=== PATIENT | female | born 1945 | race Caucasian/White ===

== ENCOUNTER 2020-11-22 14:03 | Outpatient (CLI) | payer MEDICARE, OTHER, SELFPAY ==
--- NOTE | 2020-11-22 14:43 | XR_ITS ---
WS: [id number] SCREENING DEXA SCAN Desti CLINICAL INFORMATION: POST MENOPAUSAL COMPARISON: FINDINGS: The L1-L4 bone mineral density measures 1.449 g/cm2. This corresponds to a T score score of 2.2 and Z score of 4.2. Left femoral neck bone mineral density measures 1.100 g/cm2. This corresponds to a T score of 0.7 and Z score of 2.7. Right femoral neck bone mineral density measures 1.084 g/cm2. This corresponds to a T score 0.6of and Z score of 2.5. Mean femoral neck bone mineral density measures 1.092 g/cm2. This corresponds to a T score of 0.7 and Z score of 2.6. XR/XR DEXA axial skeleton* [id number] IMPRESSION: Normal bone mineralization. Patient's FRAX calculated 10 year probability for major osteoporotic fracture i s 13.1 % and osteoporotic hip fracture is 1.5%.
== END 2020-11-22 14:04 | disposition home or self-care (01) ==
PROVIDERS: PCP Family Medicine; Visit Provider Family Medicine
DX: Z78.0 Asymptomatic menopausal state (principal)
CPT/HCPCS: 77080

== ENCOUNTER 2021-01-08 11:53 | Emergency (ER) | payer MEDICARE, OTHER, SELFPAY ==
[2021-01-08 12:03] VITALS: BP 172/82; PULSE 85; RESP 18; TEMP 36; O2SAT 99
[2021-01-08 13:33] VITALS: BP 171/60; PULSE 79; O2SAT 100
--- NOTE | 2021-01-08 13:49 | ED_ITS ---
HPI - General Adult General: Chief complaint: General Medical Stated complaint: pain all over due to fall earlier in week Time Seen by Provider: 01/08/21 13:23 History of Present Illness: HPI narrative: Patient here because of pain in her back that is been present for many years. Patient has no medicine take for discomfort Tylenol does seem to help. Patient has a history of frequent falls daughter says that nothing specific here recently patient complained more about sinus problems would like to have some for her sinuses. Daughter says it seems to help her more anything. MD complaint: Sinus pain Onset (ago): week(s) Location: face and back Severity: mild Associated symptoms: Deny chest pain, dyspnea, headache(s), nausea, rash or vomiting Review of Systems Narrative: Patient has a history of frequent falls but is able to ambulate getting up out of a chair and has no specific complaints concerning her pain in her back. Const: Denies: fever(s), chills or body aches Eyes: Denies: change in vision or blurry vision ENMT: Reports: other (Frontal sinus pain); Denies: throat pain or nasal congestion Card: Denies: chest pain or dyspnea on exertion Resp: Denies: dyspnea, productive cough or non-productive cough GI: Denies: abdominal pain, nausea or vomiting Musc: Reports: back pain (Chronic); Denies: extremity pain Skin/Breast: Denies: rash Neuro: Denies: headache(s) Psych: Denies: anxiety or depression Job/Lymph: Denies: easy bruising PFSH ED PFSH: Medical History Atrial fibrillation Chronic fatigue Hypertension Pacemaker Parkinson disease Parkinson disease Syncope Family History Other Stroke Social History Smoking and tobacco status: former smoker Alcohol intake: never Physical Exam Const: COMMON NORMALS: no acute distress, average body habitus and patient oriented x3 HENMT: COMMON NORMALS: normocephalic HEAD & SCALP: normal to inspection and normocephalic FACE & SINUS: sinus tenderness frontal Eye: COMMON NORMALS: conjunctivae normal GENERAL EYE: appearance normal, both eyes and all related structures CONJUNCTIVA: Yes conjunctivae normal Neck/C-Spine: COMMON NORMALS: no JVD Chest: COMMONS NORMALS: normal inspection of the chest Resp: COMMON NORMALS: normal respiratory effort and clear to auscultation bilaterally AUSCULTATION: clear to auscultation bilaterally Cardio: COMMON NORMALS: no JVD, regular rate and regular rhythm RATE: regular rate RHYTHM: regular rhythm GI: COMMON NORMALS: Normal to inspection, nondistended, normoactive bowel sounds present : COMMON NORMALS: Yes no CVA tenderness BLADDER/KIDNEY EXAM: Yes no CVA tenderness Back/Pelvis: COMMON NORMALS: no CVA tenderness, thoracic and lumbar spine normal to inspection and no thoracic nor lumbar tenderness THORACIC SPINE/UPPER BACK: Yes normal to inspection Extremity: COMMON NORMALS: normal to inspection and full ROM Neuro: COMMON NORMALS: patient oriented x3 Course Vital Signs: Vital signs: Vital Signs Temperature 96.8 F L 01/08/21 12:03 Pulse Rate 79 01/08/21 13:33 Respiratory Rate 18 01/08/21 12:03 Blood Pressure 171/60 01/08/21 13:33 Pulse Oximetry 100 01/08/21 13:33 MDM - General Adult MDM Narrative: Medical decision making narrative: Daughter states that patient has no specific problems going on just when get seen today when able to get into Dr. Lanier yesterday. Has history of chronic low back pain and that has not changed. Patient does complain about sinus tenderness and daughter says that pretrip antibiotics usually gets patient over the hump and she feels much better when she has that patient denies any other problems daughter denies any other concerns. Discharge Plan Discharge Patient Disposition: Home Clinical Impression: Frontal sinus pain Chronic back pain Qualifiers: Back pain location: low back pain Back pain laterality: unspecified Sciatica presence: without sciatica Qualified Code(s): M54.5 - Low back pain Condition: Stable Prescriptions: New cephalexin 500 mg capsule 500 mg PO Q8H 7 Days Qty: 21 RF: 0 Celebrex 100 mg capsule 100 mg PO BID Qty: 20 RF: 0 No Action Nourianz 20 mg tablet 20 mg PO DAILY RF: 0 carbidopa-levodopa [Sinemet] 25-250 mg tablet 1 tab PO QID RF: 0 loratadine 10 mg tablet 10 mg PO DAILY RF: 0 aspirin [Adult Low Dose Aspirin] 81 mg tablet,delayed release (DR/EC) 81 mg PO DAILY 30 Days Qty: 30 RF: 5 metoprolol succinate 25 mg tablet extended release 24 hr See Rx Instructions .ROUTE .COMPLEX Qty: 90 RF: 3 Discharge Orders: Discharge ED (Routine); Ordered 01/08/21 Ordered By: Eleuterio Billingsley Referrals: Lionel Lanier MD [Primary Care Provider] - Discharge Diet: Usual diet Discharge Activity: Resume usual activity Patient Instructions: Sinusitis (ED), Fall Prevention (ED) Activity Restrictions/Additional Instructions: Follow-up with medical provider as directed. Take medications as prescribed. Return to the ER or your medical provider if condition worsens. Please read and understand discharge instructions. If any questions ask please. Coding Level of Care Code ED Formal Wear Rental Clerk for Valerie Fwd Exam Comprehensive
== END 2021-01-08 13:39 | disposition home or self-care (01) ==
PROVIDERS: Emergency Provider Nurse Practitioner Family; PCP Family Medicine
DX: G89.29 Other chronic pain (principal); M54.5 Low back pain; R51.9 Headache, unspecified; Z79.82 Long term (current) use of aspirin; I48.91 Unspecified atrial fibrillation; I10 Essential (primary) hypertension; Z95.0 Presence of cardiac pacemaker; G20 Parkinson's disease; Z87.891 Personal history of nicotine dependence
CPT/HCPCS: 99281

== ENCOUNTER 2021-01-12 05:55 | Outpatient (CLI) | payer MEDICARE, OTHER, SELFPAY ==
--- NOTE | 2021-01-12 08:03 | PC.NURSE ---
consent signed prior to start of infusion. Vitals: HR-66, O2-99, BP-150/66, RR-14
--- NOTE | 2021-01-12 08:35 | PC.NURSE ---
Rounded on patient. Patient resting in bed no distress noted. VS- 67 HR, 98% RA, 148/71, 13 RR.
--- NOTE | 2021-01-12 08:43 | PC.NURSE ---
Infusion complete at this time. Patient reports that she is still feeling good. VS- 64 HR, 98%, 148/71, 15 RR.
--- NOTE | 2021-01-12 09:29 | ED_ITS ---
HPI - COVID History of Present Illness: HPI Narrative: The patient as an outpatient here only for a Bham and other antiviral dual infusion. She became symptomatic approximately 5 to 7 days ago and tested positive for Covid. She had an outpatient Bham infusion ordered however it is no longer given as a single agent but with the other agent. Pharmacy was consulted and they ordered the dual agent antiviral therapy. She is satting 100% on room air. Stable to get this infusion and discharge MD complaint: known COVID positive Prior covid testing: yes, results known COVID 19 common symptoms: positive dyspnea, fatigue and body aches; negative headache(s), throat pain, nasal congestion or diarrhea COVID 19 other sytmptoms: negative chest pain, requiring oxygen, requiring more oxygen, respiratory distress or confusion Onset (ago): day(s) (5) Severity: moderate COVID Results: No Data to Display Review of Systems General: Reports: 10 or more systems reviewed and unremarkable except in HPI and below Const: Reports: body aches and fatigue Eyes: Denies: change in vision, blurry vision or eye redness ENMT: Denies: throat pain, swelling of lips/tongue, ear or mastoid pain or nasal congestion Card: Denies: chest pain Resp: Reports: dyspnea GI: Denies: abdominal pain, diarrhea or GI cramping : Denies: flank pain, difficulty voiding, urinary frequency or urinary urgency Musc: Denies: neck pain, back pain, extremity pain, joint pain, joint redness, limited range of motion or muscle weakness Skin/Breast: Denies: rash, pruritus, erythema, skin pain or skin tenderness Neuro: Denies: headache(s), numbness in extremities, weakness in extremities, sensory changes, difficulty walking, dizziness, confusion or Slurred speech present Psych: Denies: anxiety or depression Endo: Denies: polyuria All/Imm: Denies: urticaria, throat swelling or tongue swelling PFSH ED PFSH: Medical History Atrial fibrillation Chronic fatigue Hypertension Pacemaker Parkinson disease Parkinson disease Syncope Family History Other Stroke Social History Smoking and tobacco status: former smoker Alcohol intake: never Physical Exam Const: COMMON NORMALS: no acute distress, average body habitus, patient oriented x3, no limitations, healthy appearing, alert and well nourished GENERAL APPEARANCE: cooperative, comfortable, well kempt and well developed ORIENTATION/CONSCIOUSNESS: Yes awake, Yes oriented to person, Yes oriented to place and Yes oriented to time HENMT: COMMON NORMALS: normocephalic, external ears normal and Normal external nose present HEAD & SCALP: normal to inspection and normocephalic NOSE: Normal external nose present EXTERNAL EAR: Yes external ears normal MOUTH: Normal oral and palatal mucosa present THROAT: posterior oropharynx normal Eye: COMMON NORMALS: Equal, round and reactive pupils present and EOMs intact bilaterally GENERAL EYE: appearance normal, both eyes and all related structures PUPIL: Yes Equal, round and reactive pupils present Neck/C-Spine: COMMON NORMALS: full ROM, no lymphadenopathy, no meningeal signs and no JVD GENERAL: Yes normal visual inspection Lymph: LYMPHATIC: no lymphadenopathy noted Chest: COMMONS NORMALS: normal inspection of the chest and normal palpation of entire chest wall Resp: COMMON NORMALS: normal respiratory effort, No retractions, No use of accessory muscles, clear to auscultation bilaterally and percussion normal EFFORT & INSPECTION: Yes able to speak in complete sentences AUSCULTATION: clear to auscultation bilaterally PERCUSSION: percussion normal Cardio: COMMON NORMALS: no JVD, regular rate, regular rhythm, S1 normal heart sound present, S2 normal heart sound present and Peripheral pulses 2+ throughout RATE: regular rate RHYTHM: regular rhythm HEART SOUNDS: S1 normal heart sound present and S2 normal heart sound present PERIPHERAL PULSES: Peripheral pulses 2+ throughout GI: COMMON NORMALS: Normal to inspection, nondistended, normoactive bowel sounds present, Soft to palpation, non-tender and no masses INSPECTION: Yes normal to inspection PALPATION: Yes Soft to palpation : COMMON NORMALS: Yes no CVA tenderness BLADDER/KIDNEY EXAM: Yes no CVA tenderness Back/Pelvis: COMMON NORMALS: no CVA tenderness, thoracic and lumbar spine normal to inspection, no thoracic nor lumbar tenderness and thoraco-lumbar ROM normal Extremity: COMMON NORMALS: normal to inspection, full ROM, capillary refill normal, no joint enlargement and no pedal edema GENERAL: Yes normal exam except as noted Neuro: COMMON NORMALS: patient oriented x3, CN's II-XII intact bilaterally, moves all extremities, no focal motor deficits, no sensory deficits noted and gait normal SENSORIUM/ORIENTATION: Yes alert, Yes oriented to person, Yes oriented to place and Yes oriented to time MENINGEAL SIGNS: Yes no meningeal signs Psych: COMMON NORMALS: mental status grossly normal, Normal thought process present, cooperative, normal affect and speech normal APPEARANCE: Yes well kempt ATTITUDE: Yes calm SPEECH: Yes normal speech THOUGHT PROCESS: Normal thought process present Skin: COMMON NORMALS: no rashes or lesions noted GENERAL SKIN EXAM: no rashes or lesions noted MDM - COVID MDM Narrative: Medical decision making narrative: The patient is here for an outpatient infusion. I was involved because a single agent monoclonal antibody was ordered and they are now using dual agent. Pharmacy was consulted and she was given the dual agent antibody. She is setting 100% on room air and in stable condition. Safe for discharge. Follow-up with primary care physician tomorrow and ER with worsening symptoms at any time dx COVID COVID Results: No Data to Display Discharge Plan Discharge Patient Disposition: Home Prescriptions: No Action Nourianz 20 mg tablet 20 mg PO DAILY RF: 0 carbidopa-levodopa [Sinemet] 25-250 mg tablet 1 tab PO QID RF: 0 loratadine 10 mg tablet 10 mg PO DAILY RF: 0 aspirin [Adult Low Dose Aspirin] 81 mg tablet,delayed release (DR/EC) 81 mg PO DAILY 30 Days Qty: 30 RF: 5 metoprolol succinate 25 mg tablet extended release 24 hr See Rx Instructions .ROUTE .COMPLEX Qty: 90 RF: 3 cephalexin 500 mg capsule 500 mg PO Q8H 7 Days Qty: 21 RF: 0 Celebrex 100 mg capsule 100 mg PO BID Qty: 20 RF: 0 Referrals: Lionel Lanier MD [Primary Care Provider] - Diet: Advance as tolerated Activity: Resume usual activity Activity Restrictions/Additional Instructions: You are suffering from Covid and have received to the dual agent antibody. Please follow-up with your primary care physician tomorrow and return to the ER with any worsening symptoms, shortness of breath, chest pain, or any other worrisome symptoms. Coding Level of Care Code ED Professor Of Literacy for Valerie Fwd Exam Comprehensive
== END 2021-01-12 07:47 | disposition home or self-care (01) ==
LOC: ER 08:36 → OPMS 08:40
PROVIDERS: PCP Family Medicine; Visit Provider Nurse Practitioner
DX: U07.1 COVID-19 (principal)
CPT/HCPCS: 96365

== ENCOUNTER → 2022-11-29 11:03 | Outpatient (BNVA) | payer MEDICARE, OTHER, SELFPAY | PROVIDERS: PCP Family Medicine; Visit Provider Internal Medicine Cardiovascular Disease | DX: G20 Parkinson's disease (principal); I10 Essential (primary) hypertension; I48.0 Paroxysmal atrial fibrillation; Z95.0 Presence of cardiac pacemaker; Z87.891 Personal history of nicotine dependence; Z91.14 Patient's other noncompliance with medication regimen | CPT/HCPCS: 99214 ==

== ENCOUNTER → 2023-05-22 15:01 | Outpatient (BNVA) | payer MEDICARE, OTHER, SELFPAY | PROVIDERS: PCP Family Medicine; Visit Provider Internal Medicine Cardiovascular Disease | DX: Z45.010 Encounter for checking and testing of cardiac pacemaker pulse generator [battery] (principal) | CPT/HCPCS: 93296 ==

== ENCOUNTER → 2023-11-13 09:34 | Outpatient (BNVA) | payer MEDICARE, OTHER, SELFPAY | PROVIDERS: PCP Family Medicine; Visit Provider Internal Medicine Cardiovascular Disease | DX: Z95.0 Presence of cardiac pacemaker (principal); I48.0 Paroxysmal atrial fibrillation; I10 Essential (primary) hypertension; G20.A2 Parkinson's disease without dyskinesia, with fluctuations; Z87.891 Personal history of nicotine dependence | CPT/HCPCS: 99214 ==

== ENCOUNTER → 2023-12-12 23:28 | Outpatient (BNVA) | payer MEDICARE, OTHER, SELFPAY | PROVIDERS: PCP Family Medicine; Visit Provider Internal Medicine Cardiovascular Disease | DX: Z45.010 Encounter for checking and testing of cardiac pacemaker pulse generator [battery] (principal) | CPT/HCPCS: 93296 ==

== ENCOUNTER → 2024-05-13 13:39 | Outpatient (BNVA) | payer MEDICARE, OTHER, SELFPAY | PROVIDERS: PCP Family Medicine; Visit Provider Internal Medicine Cardiovascular Disease | DX: I48.0 Paroxysmal atrial fibrillation (principal); Z79.01 Long term (current) use of anticoagulants; Z45.010 Encounter for checking and testing of cardiac pacemaker pulse generator [battery]; I10 Essential (primary) hypertension; G20.A2 Parkinson's disease without dyskinesia, with fluctuations | CPT/HCPCS: 99214 ==

== ENCOUNTER 2024-05-27 08:29 | Outpatient (CLI) | payer MEDICARE, OTHER, SELFPAY ==
[2024-05-27 09:10] LABS: Basophils % 0.4 %; Eosinophils # 0.1 10^3/uL (0.0-0.8); Eosinophils % 1.2 %; Hematocrit 50.2 % (36-47); Lymphocytes # 2.2 10^3/uL (0.8-4.8); Lymphocytes % 26.8 %; Mean Corpuscular HGB Conc 30.1 g/dL (30-55); Mean Corpuscular Hemoglobin 26.5 pg (27-33); Mean Corpuscular Volume 88.1 fl (85-98); Mean Platelet Volume 9.4 fL (7.4-10.4); Monocytes # 0.8 10^3/uL (0.2-0.9); Monocytes % 9.2 %; Neutrophils # 5.07 10^3/uL (1.8-7.7); Neutrophils % 61.6 %; Nucleated Red Blood Cells % 0 %; Platelet Count 229 10^3/cmm (157-399); Red Cell Distribution Width 16.1 % (12.1-15.1); White Blood Count 8.24 10^3/uL (3.29-11.43)
[2024-05-27 09:19] LABS: INR 0.92 (0.8-1.2)
== END 2024-05-27 08:30 | disposition home or self-care (01) ==
LOC: LAB 08:32
PROVIDERS: PCP Family Medicine; Visit Provider Internal Medicine Cardiovascular Disease
DX: Z79.01 Long term (current) use of anticoagulants (principal); I48.91 Unspecified atrial fibrillation
CPT/HCPCS: 36415; 85025; 85610

== ENCOUNTER 2024-05-28 07:16 | Outpatient (CLI) | payer MEDICARE, OTHER, SELFPAY ==
[2024-05-28] VITALS (13 sets, daily range): BP systolic 96–165; BP diastolic 58–84; PULSE 60–79; RESP 11–18; TEMP 36.4–36.8; O2SAT 95–100
--- NOTE | 2024-05-28 09:15 | W.PM.OPSUD ---
Surgery/Procedure H&P Update DATE OF PROCEDURE: May 28, 2024 DATE H&P PERFORMED: 05/13/24 H&P UPDATE INFORMATION: I have reviewed H&P completed within last 30 days, I have examined patient prior to procedure and No changes to prior documentation PREOP DIAGNOSIS: Pacemaker ABRAHAM PRIMARY INDICATION FOR PROCEDURE: Patient with a history of intermittent atrial fibrillation, symptomatic bradycardia, status post permanent pacer implantation, was found to have ABRAHAM in October of this year. PLANNED PROCEDURE: Operation Date: 05/28/24 08:30 Proposed Procedures p Pacemaker Generator Change PPM Exchange - REM/REP DUAL PPM(Not Applicable) - Melyssa Spencer MD PATIENT REASSESSED PRIOR TO SEDATION, WITH NO CHANGE NOTED: Yes PHYSICAL EXAM: alert, oriented x 3, clear to auscultation bilaterally and regular rate & rhythm AIRWAY EVAL/ANESTHESIA PLAN: normal airway, see other exam findings, ASA III, Monitored Anesthesia, Local Anesthesia, Risks, benefits & alternatives of sedation and/or procedure discussed and Patient agrees to continue as planned
[2024-05-28 09:23] LABS: Anion Gap 14.3 (5-19); Blood Urea Nitrogen 27 mg/dL (8-23); Calcium 8.9 mg/dL (8.5-10.5); Carbon Dioxide 27 mmol/L (22-29); Chloride 105 mmol/L (98-107); Glucose 96 mg/dL (65-115); Osmolality Calculated 299 mOsm/kg (285-295); Potassium 4.3 mmol/L (3.5-5.1); Sodium 142 mmol/L (136-145)
--- NOTE | 2024-05-28 09:25 | P.OP_ITS ---
Operative Report Date of procedure: May 28, 2024 Surgeon: Melyssa Spencer MD Procedure: PROCEDURE: PACEMAKER REVISION PREOPERATIVE DIAGNOSIS: Pacemaker elective replacement indication. POSTOPERATIVE DIAGNOSIS: Pacemaker elective replacement indication. ESTIMATED BLOOD LOSS: None COMPLICATIONS: None. BRIEF HISTORY: The patient is a 78-year-old white female who had a permanent pacemaker implantation for symptomatic bradycardia/intermittent atrial fibrillation. The patient was found to have elective replacement indication, during routine office followup evaluation. For further management of patient's condition for the symptomatic bradycardia, the patient required a pacemaker revision. Patient required a dual-chamber pacemaker for symptom relief and the need for AV synchrony The procedure was explained to the patient and her daughter in detail with the risks and benefits. The risks of bleeding, hematoma, vascular injury, infection and other concomitant complications were explained in detail, which the patient understood well and consented to proceed. PROCEDURES PERFORMED: 1. Explantation of the old pacemaker generator. 2. Implantation of the new generator. The patient brought to the Cardiac Digital Imager. The left side of the neck and the subclavian area were cleaned and draped in a sterile fashion. 1% Xylocaine was used for local anesthetic agent. A 2 inch long incision was made just below the previous pacemaker scar. By sharp and blunt dissection, the pacemaker pocket was accessed. The old generator was delivered from the pocket. The generator was detached from the lead. The new Medtronic generator was attached to the lead. The pacemaker pocket was copiously irrigated with vancomycin solution. Complete hemostasis was achieved. The lead was positioned behind the generator and the generator was attached to the pectoralis fascia by suturing with 0 Surgilon. Sponge counts were confirmed. The pacemaker pocket was closed in layers. Skin was approximated using 4-0 Vicryl. EXPLANTED DEVICE: Pacemaker Generator: Brand: Adapta. Model number: AD . Serial number: [id number]. Date of implant: 06/24/2012 IMPLANTED DEVICES: Ventricular Lead: Date of implantation: 06/24/2012 Model number: 5076/52 Serial number: [id number] Make: Medtronic. Atrial lead Date of implantation: 06/24/2012 Model number: 5076/45 Serial number: [id number] Make: Medtronic. Implanted Generator: Date of implantation : 05/28/2024 Brand: Mert William. Model number: W1 Serial number: [id number] Make: [employer]back [employer] Stimulation Threshold: The ventricular sensing was 7.1 millivolts. Ventricular lead impedance was 494 ohms and the pacing threshold was 1.5 volts at 0.4 milliseconds. The atrial sensing was 2.4 millivolts. Atrial lead impedance was 361 ohms and the pacing threshold was 0.5 volts at 0.4 milliseconds. The pacemaker was set for AAIR/DDDR mode with an upper rate of 130 and a lower rate of 60. A pressure dressing was applied over the pacemaker site. The patient was transferred back to medical floor in stable condition. Sponge counts were correct.
--- NOTE | 2024-05-28 10:30 | SUR.PHASEI ---
POST OP NOTE Received patient from cleaner laboratory equipment. Status post Pacmaker Generator replacement to left upper chest. Pressure bandage in place. Site is dry and intact with no hematoma formation noted. Vital Signs stable. Call light in easy reach. Family at bedside. Verbal post cath instcutions given. Informed to call for needs.
[2024-05-28] MEDS: carbidopa-levodopa 25-250mg Tablet 1 EACH PO ×3 (11:34→20:22)
[2024-05-28] MEDS: ceFAZolin 2,000 mg SDV 2000 MG IVP ×2 (15:56→23:46)
[2024-05-28] MEDS: water for injection-sterile 10 ML 100 ML (15:57)
--- NOTE | 2024-05-28 16:14 | PC.NURSE ---
Incontinent of urine in brief
[2024-05-28] MEDS: sodium chloride 0.9% 1,000 ML 75 ML IV (20:24)
[2024-05-29] VITALS: BP 152/84; PULSE 62; RESP 17; TEMP 36.5; O2SAT 98
[2024-05-29 02:06] VITALS: RESP 18
[2024-05-29] MEDS: morphine 4 mg/mL SDV 1 mL 2 MG IVP (02:06)
[2024-05-29 04:00] VITALS: BP 108/75; PULSE 74; RESP 17; TEMP 36.5; O2SAT 91
--- NOTE | 2024-05-29 06:44 | ECG_ITS ---
[facility] Test Date: 2024-05-29 Pat Name: Desirae Fisher Department: Room: 277 Gender: Female Validation Manager: : 1945 Requested By: Melyssa Spencer Order Number: [id number] Julian MD: Moose Evans M.D. Measurements Intervals [place] Rate: 94 P: 67 MI: 153 QRS: 26 QRSD: 89 T: 63 QT: 357 QTc: 446 Interpretive Statements SINUS RHYTHM Compared to ECG 07/22/2018 17:02:22 No significant changes Electronically Signed On 05-29-2024 14:50:51 CDT by Moose Evans M.D. [id number]
[2024-05-29 07:01] VITALS: PULSE 81
[2024-05-29 08:00] VITALS: BP 194/84; PULSE 75; RESP 18; TEMP 36.5; O2SAT 95
[2024-05-29] MEDS: carbidopa-levodopa 25-250mg Tablet 1 EACH PO (09:34)
[2024-05-29] MEDS: ceFAZolin 2,000 mg SDV 2000 MG IVP (09:34)
[2024-05-29] MEDS: metoprolol succinate ER (24 HR) 25 mg Tablet PO (09:34)
--- NOTE | 2024-05-29 10:00 | PM.PN ---
Subjective Subjective: Patient had a pacemaker revision yesterday. The pacemaker site has no hematoma bleeding. Pacemaker function was found to be appropriate. Medications: Medication Review Details: Current Medications Carbidopa/Levodopa (Carbidopa-Levodopa 25-250mg Tablet) 1 each PO QID [facility] Last Admin: 05/29/24 09:34 Dose: 1 each Sodium Chloride (Sodium Chloride 0.9%) 1,000 mls @ 75 mls/hr IV .[id number] [facility] Last Admin: 05/28/24 20:24 Dose: 75 mls/hr Metoprolol Succinate (Metoprolol Succinate Er (24 Hr) 25 Mg Tablet) 25 mg PO DAILY [facility] Last Admin: 05/29/24 09:34 Dose: 25 mg Morphine Sulfate (Morphine 4 Mg/Ml Sdv 1 Ml) 2 mg IVP Q4H PRN PRN Reason: SEVERE PAIN Last Admin: 05/29/24 02:06 Dose: 2 mg Vitals/I&O/Wt Last Vital Signs Temp 97.7 F 05/29/24 08:00 Pulse 75 05/29/24 08:00 Resp 18 05/29/24 08:00 BP 194/84 05/29/24 08:00 Pulse Ox 95 05/29/24 08:00 O2 Del Method Room Air 05/29/24 08:00 05/28/24 05/29/24 05/29/24 22:59 06:59 14:59 Intake Total 490 / 520 240 / 240 Balance 490 / 520 240 / 240 Weight last 48 hrs Weight 126 lb 1 oz Weight 117 lb Weight 117 lb Physical Exam Narrative: GENERAL: The patient is alert and oriented times three. Not in any acute distress. HEENT: No significant pallor, icterus or lymphadenopathy.Oral cavity: There are no mucous membrane lesions. NECK: Trachea appears to be central. No masses noted. No JVD or thyromegaly appreciated. RESPIRATORY: Chest is symmetrical. No intercostals muscle retraction or any accessory muscle activation. There is no chest wall tenderness. Breath sounds are heard bilaterally. No rales or rhonchi heard. No evidence of any consolidation. BREASTS: Deferred. HEART: The heart sounds are normal. No S3 or S4. No significant murmurs. No pericardial rub ABDOMEN: No vessel pulsations or distention. No tenderness. No organomegaly appreciated. Bowel sounds are normally heard. : Deferred. RECTAL: Deferred. LYMPHATIC: No lymphadenopathy noted in the neck. EXTREMITIES: No edema or cyanosis. No clubbing. MUSCULOSKELETAL: No acute joint deformities or swelling SKIN: There are no significant rashes or ecchymosis NEUROPSYCHIATRIC: The patient is alert and oriented x3. Appears to be in a good mood. No tremors or rigidity noted. Data 05/28/24 09:00 Other Labs: Laboratory Last Values Sodium 142 mmol/L (136-145) 05/28/24 09:00 Potassium 4.3 mmol/L (3.5-5.1) 05/28/24 09:00 Chloride 105 mmol/L (98-107) 05/28/24 09:00 Carbon Dioxide 27 mmol/L (22-29) 05/28/24 09:00 Anion Gap 14.3 (5-19) 05/28/24 09:00 BUN 27 mg/dL (8-23) H 05/28/24 09:00 Creatinine 0.8 mg/dL (0.5-0.9) 05/28/24 09:00 GFR Calculation Not Reportable 05/28/24 09:00 Glucose 96 mg/dL (65-115) 05/28/24 09:00 Calculated Osmolality 299 mOsm/kg (285-295) H 05/28/24 09:00 Calcium 8.9 mg/dL (8.5-10.5) 05/28/24 09:00 A&P Assessment and plan (1) Atrial fibrillation: Intermittent atrial fibrillation, currently in the regular rhythm. Continue on the current medications Qualifiers: Atrial fibrillation type: paroxysmal Qualified Code(s): I48.0 - Paroxysmal atrial fibrillation (2) Hypertension: Blood pressure is in the normal range. May continue on the current medication. Qualifiers: Hypertension type: essential hypertension Qualified Code(s): I10 - Essential (primary) hypertension (3) Pacemaker: Pacemaker revision was done yesterday. Pacemaker function is found to be appropriate (4) Parkinson disease: Continue on the current management. Qualifiers: Dyskinesia presence: without dyskinesia Fluctuating manifestations: with fluctuating manifestations Qualified Code(s): G20.A2 - Parkinson's disease without dyskinesia, with fluctuations Plan Since the patient remains stable with no new symptoms, she is being discharged home today. Post pacemaker instructions are given Will be seen in the clinic in 1 week to be seen by the nurse practitioner for a wound check and pacemaker check Appoint with me in the office in 1 month Attestations Medical Necessity Statement*: Discharge home today Coding Level of Care Code Acute Code for [facility] Fwd Diagnoses Paroxysmal atrial fibrillation I48.0 Atrial fibrillation type: paroxysmal Essential hypertension I10 Hypertension type: essential hypertension Pacemaker Z95.0 Parkinson's disease without dyskinesia, with fluctuating manifestations G20.A2 Dyskinesia presence: without dyskinesia Fluctuating manifestations: with fluctuating manifestations
[2024-05-29 11:59] VITALS: BP 130/56; PULSE 70; RESP 16; TEMP 36.7; O2SAT 95
== END 2024-05-29 13:07 | disposition home or self-care (01) ==
LOC: CCL 07:28 → MEDSURG 11:05
PROVIDERS: PCP Family Medicine; Visit Provider Internal Medicine Cardiovascular Disease
DX: Z45.010 Encounter for checking and testing of cardiac pacemaker pulse generator [battery] (principal); I10 Essential (primary) hypertension; G20.A2 Parkinson's disease without dyskinesia, with fluctuations; I48.0 Paroxysmal atrial fibrillation
CPT/HCPCS: 33228; 36415; 80048; 93005; 96374; 97165; 99152; 99153; A4216; C1769; C1786; J0690; J2250; J2270; J3010; J3370; J7030; J7050

== ENCOUNTER → 2024-06-04 15:05 | Outpatient (BNVA) | payer MEDICARE, OTHER, SELFPAY | PROVIDERS: PCP Family Medicine; Visit Provider Nurse Practitioner Family | DX: Z09 Encounter for follow-up examination after completed treatment for conditions other than malignant neoplasm (principal) | CPT/HCPCS: 99214 ==

== ENCOUNTER → 2024-06-18 10:21 | Outpatient (BNVA) | payer MEDICARE, OTHER, SELFPAY | PROVIDERS: PCP Family Medicine; Visit Provider Internal Medicine Cardiovascular Disease | DX: Z45.018 Encounter for adjustment and management of other part of cardiac pacemaker (principal) | CPT/HCPCS: 93296 ==

== ENCOUNTER → 2024-08-12 10:48 | Outpatient (BNVA) | payer MEDICARE, OTHER, SELFPAY | PROVIDERS: PCP Family Medicine; Visit Provider Nurse Practitioner Family | DX: I48.0 Paroxysmal atrial fibrillation (principal); I10 Essential (primary) hypertension; Z95.0 Presence of cardiac pacemaker; Z87.891 Personal history of nicotine dependence | CPT/HCPCS: 99214 ==

== ENCOUNTER → 2024-12-10 10:29 | Outpatient (BNVA) | payer MEDICARE, OTHER, SELFPAY | PROVIDERS: PCP Family Medicine; Visit Provider Internal Medicine Cardiovascular Disease | DX: Z45.018 Encounter for adjustment and management of other part of cardiac pacemaker (principal) | CPT/HCPCS: 93296 ==

== ENCOUNTER → 2025-06-03 11:50 | Outpatient (BNVA) | payer MEDICARE, OTHER, SELFPAY | PROVIDERS: PCP Family Medicine; Visit Provider Internal Medicine Cardiovascular Disease | DX: Z45.018 Encounter for adjustment and management of other part of cardiac pacemaker (principal) | CPT/HCPCS: 93296 ==

== ENCOUNTER → 2025-09-02 13:03 | Outpatient (BNVA) | payer MEDICARE, OTHER, SELFPAY | PROVIDERS: PCP Family Medicine; Visit Provider Internal Medicine Cardiovascular Disease | DX: Z45.018 Encounter for adjustment and management of other part of cardiac pacemaker (principal) | CPT/HCPCS: 93296 ==